=== PATIENT | female | born 1945 | race Caucasian/White ===

== ENCOUNTER 2018-12-17 12:31 | Observation (INO) ==
[2018-12-17] MEDS ORDERED: NITROGLYCERIN TOP ONE (13:20)
[2018-12-17] MEDS ORDERED: ASPIRIN PO ONE (13:20)
[2018-12-17] MEDS ORDERED: ZOFRAN IV ONE (13:21)
[2018-12-17] MEDS ORDERED: MORPHINE IV ONE (13:21)
--- NOTE | 2018-12-17 13:48 | Diag Imaging Result Doc PS360 ---
EXAM: CHEST-1 VIEW 12/17/2018 HISTORY: CP TECHNIQUE: AP portable at 1328 COMMENT: There is no evidence of acute cardiac or pulmonary disease. There are no previous studies available for comparison. IMPRESSION: No acute disease. Electronically signed by Richie Pena 12/17/2018 1:45 PM
[2018-12-17 13:58] LABS: BASO# 0.11 X1000 (0.0-0.2); BASO% 0.9 % (0.0-0.8); EOS% 1.7 % (0.0-10.0); HEMATOCRIT 41.8 % (37.0-47.0); IMM GRAN# 0.05 X1000 (0.0-0.04); IMM GRAN% 0.4 % (0.0-0.5); LYMPH# 6.44 X1000 (1.2-3.4); LYMPH% 54.3 % (20.5-51.1); MCHC 33.5 g/dL (33-37); MCV 83.6 FL (81-99); MONO# 0.65 X1000 (0.11-0.59); MONO% 5.5 % (1.7-9.3); MPV 11.2 FL (7.4-10.4); NEUT# 4.42 X1000 (1.4-6.5); NEUT% 37.2 % (42.2-75.2); PLT 263 X1000 (130-400); RDW 13.8 % (11.5-14.5); WBC 11.87 X1000 (4.8-10.8)
[2018-12-17 14:04] LABS: PROTIME 13.3 Seconds (11.0-16.0)
[2018-12-17 14:05] LABS: PTT 34.7 Seconds (22.3-41.8)
[2018-12-17 14:32] LABS: AGAP 14; ALB/GLOB RATIO 1.7; ALBUMIN 4.3 g/dL (3.5-5.0); ALKALINE PHOSPHATASE 42 U/L (32-104); BUN 10 mg/dL (8-22); CALCIUM 9.4 mg/dL (8.8-10.2); CHLORIDE 94 mmol/L (98-107); CK PROFILE 54 U/L (24-173); COSMO 270; CREATININE 0.6 mg/dL (0.5-0.9); ESTIMATED GFR > 60; GLUCOSE 149 mg/dL (70-104); GOT 17 U/L (10-30); GPT 19 U/L (10-36); POTASSIUM 4.3 mmol/L (3.5-5.1); SODIUM 134 mmol/L (136-145); TCO2 26 mmol/L (25-35); TOTAL BILIRUBIN 0.55 mg/dL (0.20-1.00); TOTAL PROTEIN 6.9 g/dL (6.3-8.3)
--- NOTE | 2018-12-17 15:29 | PROVIDER DOCUMENTATION ---
This chart was entered by Marybel Govea Scribe, acting as scribe for Nick Branch MD. HPI-Chest Pain - General Chief Complaint: Chest Pain Stated Complaint: CP,LEFT ARM PAIN Time Seen by Provider: 12/17/18 12:58 Source: patient Allergies/Adverse Reactions: Patient Allergies Allergy/AdvReac Type Severity Reaction Status Date / Time No Known Allergies Allergy Verified 12/17/18 14:59 Home Medications: Home Medication List Medication Instructions Recorded Confirmed Last Taken Type Cholecalciferol (Vitamin D3) 50,000 unit PO Q7D 12/17/18 12/17/18 Unknown History [Vitamin D3] Gabapentin 300 mg PO TID 12/17/18 12/17/18 Unknown History Glipizide [Glipizide ER] 10 mg PO DAILY 12/17/18 12/17/18 Unknown History Levothyroxine [Synthroid] 100 microgm PO DAILY 12/17/18 12/17/18 Unknown History Metformin [Glucophage] 1,000 mg PO BID CC 12/17/18 12/17/18 Unknown History Omeprazole 40 mg PO DAILY 12/17/18 12/17/18 Unknown History SIMVAstatin [Zocor] 40 mg PO QHS 12/17/18 12/17/18 Unknown History Telmisartan 40 mg PO DAILY 12/17/18 12/17/18 Unknown History - History of Present Illness-CP Nature of Presenting Problem: 73 y/o female presents to ED with chest pain under L breast onset at midnight today. Pt reports her pain radiated to L arm. Current pain is 6/10. Pt states she had an episode of chest pressure/pain 10/10 radiating into her throat w/ shortness of breath 3 days ago. This lasted for a couple of "hours" before subsiding. She reports a CP eval w/ [facility] (reportedly normal ~ 3 years ago, no evaluation since, but occas CP in recent mos, however brief in duration unlike current HPI. She has not had ASA. She has no prior documented hx of CAD, but has RF to include all conventional RF except tobacco and cocaine/meth. Location: reports: central Chest Pain Radiation: reports: arms (L), other (under L breast) Quality of Pain: reports: pressure, tightness Severity in ED: moderate Onset/Duration: last night Timing: still present Context/Activities at Onset: reports: none Modifying Factors: worse with: movement Associated Symptoms: reports: denies symptoms Nitro Today/Relief: no nitro taken today Aspirin Treatment Today: 325 mg x 1, provided by ED Prior Chest Pain/Cardiac Workup: reports: no prior chest pain Similar Symptoms Previously?: No Recently Seen Here or By Another Healthcare Provider: No Review of Systems - Adult - REVIEW OF SYSTEMS - ADULT Constitutional: denies: chills, fever Eyes: reports: no symptoms reported Ears, Nose, Mouth & Throat: reports: no symptoms reported Cardiovascular: reports: chest pain. denies: palpitations Respiratory: denies: cough, shortness of breath Gastrointestinal: denies: abdominal pain, diarrhea, nausea, vomiting Genitourinary: reports: no symptoms reported Musculoskeletal: denies: back pain, joint pain Integumentary: reports: no symptoms reported Neurological: denies: dizziness/vertigo, seizure Psychiatric: reports: no symptoms reported Endocrine: reports: no symptoms reported Hematologic/Lymphatic: reports: no symptoms reported Allergic/Immunologic: reports: no symptoms reported All Other Systems: Reviewed and Negative Past History - Adult - PAST MEDICAL HISTORY-ADULT Review of Records: reports: Old Records Reviewed, Nursing Assessment Review, Medications Reviewed Major Childhood Illnesses: reports: denies history Cardiovascular: reports: HTN, hyperlipidemia Endocrine/Immune: reports: Diabetes, thyroid disorder - PRIOR SURGERIES/PROCEDURES Surgical/Procedure History: reports: hysterectomy, joint replacement - IMMUNIZATION STATUS Childhood Immunizations: See Nurse Assessment Flu Vaccine: See Nurse Assessment - FAMILY HISTORY Family History: reviewed, not pertinent - SOCIAL HISTORY Smoking: non-smoker Substance Use: none/never Alcohol Use Frequency: never Living Situation: family Physical Exam-General - PHYSICAL EXAM-ADULT Initial Vital Signs Reviewed: Yes - CONSTITUTIONAL General Appearance: appears well, alert, no apparent distress, obese - EYES Eyes: PERRL/EOMI, pink conjunctivae - HEAD, EARS, NOSE, MOUTH & THROAT HENMT: normocephalic/atraumatic, moist mucous membranes, normal ENT inspection - NECK Neck: non-tender, full range of motion - RESPIRATORY Respiratory: chest non-tender, lungs clear, normal breath sounds - CARDIOVASCULAR Cardiovascular: normal peripheral pulses, regular rate, rhythm - GASTROINTESTINAL (ABDOMEN) Abdominal Exam: normal bowel sounds, non tender, soft - MUSCULOSKELETAL Back Exam: normal inspection, no CVA tenderness, no vertebral tenderness Extremity: normal range of motion, non-tender, pulse deficit (pedal) - SKIN Integumentary: normal color, warm/dry - NEUROLOGIC Neurologic: grossly normal - PSYCHIATRIC Psych/Mental Status: normal mood/affect, normal thought content, normal thought process, oriented x 3 - HEART Score HEART Score: History: Highly Suspicious HEART Score: ECG: Normal HEART Score: Age: > or = 65 Years HEART Score: Risk Factors for Atherosclerotic Disease: > or = 3 Risk Factors or History of Atherosclerotic Disease HEART Score: Troponin: < or = Normal Limit Total HEART Score:: 6 Progress - PLAN OF CARE/RESULTS Progress/Plan/Lab Results: Vital Signs - 8 hr 12/17/18 12:40 Temperature 97.8 F Pulse Rate 71 Respiratory Rate 18 Blood Pressure 174/80 O2 Sat by Pulse Oximetry 94 L Laboratory Results - last 24 hr 12/17/18 12/17/18 12/17/18 13:45 13:45 13:45 WBC 11.87 H RBC 5.00 Hgb 14.0 Hct 41.8 MCV 83.6 MCH 28.0 MCHC 33.5 RDW Std Deviation 13.8 Plt Count 263 MPV 11.2 H Immature Gran % (Auto) 0.4 Neut % (Auto) 37.2 L Lymph % (Auto) 54.3 H Maury % (Auto) 5.5 Eos % (Auto) 1.7 Baso % (Auto) 0.9 H Immature Gran # (Auto) 0.05 H Neut # (Auto) 4.42 Lymph # (Auto) 6.44 H Maury # (Auto) 0.65 H Eos # (Auto) 0.20 Baso # (Auto) 0.11 PT INR PTT (Actin FS) Sodium 134 L Potassium 4.3 Chloride 94 L Carbon Dioxide 26 Anion Gap 14 BUN 10 Creatinine 0.6 Estimated GFR/1.73 m2 > 60 BUN/Creatinine Ratio 17 Glucose 149 H Calculated Osmolality 270 Calcium 9.4 Total Bilirubin 0.55 AST 17 ALT 19 Alkaline Phosphatase 42 Creatine Kinase 54 Troponin T [id number]-[id number] Pept 70 Total Protein 6.9 Albumin 4.3 Globulin 2.6 Albumin/Globulin Ratio 1.7 12/17/18 12/17/18 13:45 13:45 WBC RBC Hgb Hct MCV MCH MCHC RDW Std Deviation Plt Count MPV Immature Gran % (Auto) Neut % (Auto) Lymph % (Auto) Maury % (Auto) Eos % (Auto) Baso % (Auto) Immature Gran # (Auto) Neut # (Auto) Lymph # (Auto) Maury # (Auto) Eos # (Auto) Baso # (Auto) PT 13.3 INR 1.00 PTT (Actin FS) 34.7 Sodium Potassium Chloride Carbon Dioxide Anion Gap BUN Creatinine Estimated GFR/1.73 m2 BUN/Creatinine Ratio Glucose Calculated Osmolality Calcium Total Bilirubin AST ALT Alkaline Phosphatase Creatine Kinase Troponin T < 0.010 Csb-N-Ixmssvxozrm Pept Total Protein Albumin Globulin Albumin/Globulin Ratio Orders Category Date Time Status Cardiac Monitoring DIRECTED Care 12/17/18 13:20 Active Oxygen Therapy- ED Nursing DIRECTED Care 12/17/18 13:20 Active Saline Loc NOW Care 12/17/18 13:20 Active CHEST-1 VIEW [RAD] Stat Exams 12/17/18 13:21 Completed CBC WITH ELECTRONIC DIFF [HEME] Stat Lab 12/17/18 13:45 Completed CK PROFILE [SP CHEM] Stat Lab 12/17/18 13:45 Completed COMPREHENSIVE METABOLIC PANEL [CHEM] Stat Lab 12/17/18 13:45 Completed PRO B-NATRIURETIC PEPTIDE Stat Lab 12/17/18 13:45 Completed PROTIME WITH INR [COAG] Stat Lab 12/17/18 13:45 Completed PTT [COAG] Stat Lab 12/17/18 13:45 Completed TROPONIN T Stat Lab 12/17/18 13:45 Completed Aspirin Med 12/17/18 13:20 Discontinued 324 mg PO NOW ONE Morphine Med 12/17/18 13:21 Discontinued 4 mg IV NOW ONE Nitroglycerin Med 12/17/18 13:20 Discontinued 1 inch TOP NOW ONE Ondansetron [Zofran] Med 12/17/18 13:21 Discontinued 4 mg IV NOW ONE CP/SOB/Palp >45 yrs of Age Stat Oth 12/17/18 13:19 Ordered EKG [EKG] Stat Ther 12/17/18 13:20 Ordered Result Diagrams: 12/17/18 13:45 12/17/18 13:45 - REASSESSMENT Reassessment #1 Time Reassessed: 15:26 Status: improving (pt reports pain improved to '4' after Rx: initial studies wnl: will admit) - EKG 1 Time of EKG reading by physician:: 12:34 EKG Read and Signed by:: Nick Branch EKG Interpretation (*Must complete 3 of following elements*): Abnormal Rate: 70 Rhythm: NSR [place]: normal QRS: other (low voltage QRS; inferior infarct) MO Interval: normal ST Wave: normal - XRAY 1 XRAY Study: Chest Impression: See EMR Report ([facility] - [address], [address], [place] [address] [facility] - [address] [place] [address] Department of Imaging Patient: ANA MONREAL Date: 12/17/18MR#: [id number] : 1945DM Status: PRE ERAcct#: [id number] Age/Sex: 73/FRoom/Bed: Loc: ED Ordering Physician: Nick Branch MD Family Physician: Lazaro Cohen MD Reason for Procedure: CP ___ Signed EXAM: CHEST-1 VIEW 12/17/2018 HISTORY: CP TECHNIQUE: AP portable at 1328 COMMENT: There is no evidence of acute cardiac or pulmonary disease. There are no previous studies available for comparison. IMPRESSION: No acute disease. Electronically signed by Richie Pena 12/17/2018 1:45 PM 12/17/18 1345 Interpreting Physician: Richie Pena MD Dictated Date/Time: 12/17/18 1345 cc: Nick Branch MD; Lazaro Cohen MD) - CONSULTS/PCP/HOSPITALIST Notification #1 *Consult/PCP/Hospitalist*: Chuy Time Discussed: 15:28 Consult Disposition: Admit Departure - Departure Date of Disposition Decision: 12/17/18 Time of Disposition Decision: 15:28 DIAGNOSIS: Chest pain Disposition: ADMITTED INPATIENT 09 Certified Medical Emergency: Emergent Condition: Stable Referrals and Follow-Ups: Lazaro Cohen MD [Primary Care Provider] - - Critical Care Note This patient required my direct & personal management of CC.: No Attestation - Physician/ ISAAC Attestation Patient care was provided by Advanced Practice Provider:: No The physician spent face to face time with patient:: Yes Advanced Practice Provider documentation review:: Supervising physician onsite and consulted in the evaluation and care of this patient. The physician did have a face to face encounter with the patient. This chart was documented by the indicated scribe, (Marybel Govea Scribe) and accurately reflects the services I performed and decisions made by me, Nick Branch MD, as attested by the provider's signature.
--- NOTE | 2018-12-17 16:04 | EKG Report ---
Test Performed on : 12/17/2018 12:34:58 PM Test Reason : cp Blood Pressure : / mmHG Vent. Rate : 070 BPM Atrial Rate : 070 BPM P-R Int : 128 ms QRS Dur : 076 ms QT Int : 386 ms P-R-T Axes : 012 -24 010 degrees QTc Int : 416 ms Normal sinus rhythm. Low voltage QRS Inferior infarct , age undetermined Abnormal ECG When compared with ECG of 13-JUN-2009 21:51, Inferior infarct is now present Unconfirmed Result
[2018-12-17 16:58] VITALS: BP 115/83
--- NOTE | 2018-12-17 17:47 | HISTORY AND PHYSICAL ---
PRIMARY CARE PHYSICIAN: Dr. Cohen. REPRODUCTIVE HEALTHCARE ASSISTANT: Dr. Cui. CHIEF COMPLAINT: Chest pain that radiated to her left arm and shortness of breath that began 3 days ago and was intermittent but progressively worsened. HISTORY OF PRESENTING ILLNESS: This is a 73-year-old female who presents to [facility] with complaints of left-sided chest pain that radiated to her left arm, rated the pain a 6/10. States it began about 3 days ago, felt like an "elephant was sitting on my chest and choking in my throat." The pain was intermittent so she did not come into the hospital at that time and it progressed over the next few days until this morning it worsened and she rated it a 6/10 with some associated shortness of breath so she came in for evaluation. States that she has had chest pain before but no [place]. Had a stress test about 3 years ago that was normal. Is followed outpatient by Dr. Cui. Her 1st cardiac enzyme was negative. Her EKG showed normal sinus rhythm at 70 so she will be admitted for further evaluation and treatment. PAST MEDICAL HISTORY: Of hypertension, hyperlipidemia, diabetes type 2 and hypothyroidism. PAST SURGICAL HISTORY: Of a hysterectomy, left knee total arthroscopy. FAMILY HISTORY: Reviewed and noncontributory. SOCIAL HISTORY: She currently lives with family. Denies any tobacco, alcohol or illicit drug use. ALLERGIES: She has no known drug allergies. HOME MEDICATIONS: We will hold her vitamin D3 50,000 units p.o. every 7 days, continue her gabapentin 300 mg p.o. t.i.d., glipizide ER 10 mg p.o. daily, levothyroxine 100 mcg p.o. daily, metformin 1000 mg p.o. b.i.d., omeprazole 40 mg p.o. daily, simvastatin 40 mg p.o. at bedtime and telmisartan 40 mg p.o. daily. LABORATORY DATA: Showed a white blood cell count of 11.87, hemoglobin 14, hematocrit 41.8, platelets 263,000, PT and INR of 13.3 and 1. Sodium of 134, potassium 4.3, chloride 94, CO2 26, BUN of 10, creatinine 0.6, glucose 149. First set of cardiac enzymes was negative. ProBNP of 70. EKG with normal sinus rhythm at 70. Chest x-ray showed no acute disease. REVIEW OF SYSTEMS: She denied any fever, chills, blurred vision, dizziness. She was positive for left-sided chest pain radiating to the left arm with shortness of breath. Denied any abdominal pain, nausea, vomiting, constipation, diarrhea, burning or hurting with urination. PHYSICAL EXAMINATION: On arrival she had a temperature of 97.8 degrees, pulse 71, respirations 18, blood pressure 174/80, saturating 94% on room air. GENERAL: This is a 73-year-old female who is lying in the bed and answers questions appropriately. HEENT: Normocephalic, atraumatic. Normal ENT inspection. Oropharynx and nares are clear. Pupils are equal, round, and reactive to light, accommodation. Extraocular movements are intact. NECK: Normal inspection, normal range of motion. LUNGS: Clear to auscultation bilaterally with equal lung expansion and chest wall movement. HEART: With regular rate and rhythm. No murmurs, rubs or gallop. ABDOMEN: Soft, nontender, nondistended. Bowel sounds are present x4 quadrants. MUSCULOSKELETAL: She had 5/5 strength x4 extremities. NEUROLOGICAL: The cranial nerves 2-12 appear grossly intact. ASSESSMENT: 1. Chest pain. 2. Hypertension. 3. Diabetes type 2. 4. Hypothyroidism . PLAN: She will be admitted to the medical unit. Placed on telemetry. O2 per protocol. Diabetic diet. SCDs for DVT prophylaxis. We will do serial cardiac enzymes q.8 x3. Continue home medications as previously identified. Recheck a CBC, BMP in the a.m. and check a lipid profile in the a.m. The patient does state that she has an appointment outpatient with Dr. Cui in about a week so if her cardiac enzymes are negative most likely we can discharge her home and she can follow up with him outpatient for further testing. Further orders after seen by attending. Dictated by LUPE Joshi for Papa Vera MD cc: MD Dr. Noel Castanon CRNP Agree with the above. the following is my own face to face evaluation. patient with left lateral chest wall tenderness along with some tenderness along the left side of the sternum. suspect musculoskeletal cause of her chest pain vs GI but given significant risk factors, will rule out ACS with serial troponins. Addendum: later called by nursing that patient chose to leave AMA. JACKIE
--- NOTE | 2018-12-18 15:38 | DISCHARGE SUMMARY ---
ADMISSION DATE: 12/17/2018 DISCHARGE DATE: 12/17/2018 PRIMARY CARE PHYSICIAN: Dr. Cohen. LEADER ASSEMBLER: Dr. Cui. Please note this is an AMA discharge on a 73-year-old female who presented to the emergency room with complaints of chest pain left-sided that radiated to her left arm. States it began 3 days ago, felt like a "elephant was sitting on my chest and choking in my throat." The pain was intermittent so she did not come to the hospital at that time, it progressed over the next few days and then she came in. Her first set of cardiac enzymes were negative. We admitted her but before she could get a bed in the emergency room she decided to leave [place] stating that she had an appointment with Dr. Cui, her cost specialist on 12/29/2018 and "I don't feel they are going to find anything wrong with my heart at this time" so she left [place]. TIME SPENT: 35 minutes. Dictated by LUPE Joshi for Papa Vera MD cc: MD Dr. Noel Castanon
== END 2018-12-17 18:00 | disposition left against medical advice (07) ==
LOC: 3N 12:31 → ED 12:31 → 3N 17:11 → EDIPHOLD 17:24
PROVIDERS: ATTEND Internal Medicine